=== PATIENT | female | born 1965 | race Caucasian/White ===

== ENCOUNTER 2024-12-13 02:04 | Emergency (ER) | payer OTHER ==
[~2024-12-13] VITALS: Ht 167.6 cm; Wt 100.0 kg
[2024-12-13 02:06] VITALS: O2SAT 96
[2024-12-13 03:15] LABS: CHLORIDE 102 mEq/L (98-107); POTASSIUM 3.9 mEq/L (3.5-5.1); SODIUM 138 mEq/L (136-145)
[2024-12-13 03:16] LABS: CALCIUM 9.6 mg/dL (8.7-10.4); CARBON DIOXIDE 26 mEq/L (21-32)
[2024-12-13 03:21] LABS: CREATININE 0.7 mg/dL (0.6-1.0); GLUCOSE 126 mg/dL (70-105); UREA NITROGEN BLOOD 14 mg/dL (9-23)
[2024-12-13] MEDS: ONDANSETRON HCL 4MG/2ML INJ IV STA (04:30)
[2024-12-13] MEDS: MORPHINE SULFATE 4 MG/ML INJ (FOR IV/IM USE) IV STA (04:30)
[2024-12-13] MEDS: SODIUM CHLORIDE 0.9% 1,000 ML IV ONE (04:31)
[2024-12-13] MEDS ORDERED: IBUP-2029 MT (05:17)
[2024-12-13 06:11] VITALS: BP 106/60; PULSE 71; RESP 15; TEMP 37.2; O2SAT 93
[2024-12-13] MEDS ORDERED: IOHEXOL-300 100 ML BOTTLE ONE (07:05)
== END 2024-12-13 06:37 | disposition home or self-care (01) ==
LOC: ER 02:04
DX: S20.212A Contusion of left front wall of thorax, initial encounter (principal); S30.1XXA Contusion of abdominal wall, initial encounter; S70.02XA Contusion of left hip, initial encounter; E11.9 Type 2 diabetes mellitus without complications; V49.9XXA Car occupant (driver) (passenger) injured in unspecified traffic accident, initial encounter; Y93.89 Activity, other specified; Y92.89 Other specified places as the place of occurrence of the external cause; Y99.8 Other external cause status
CPT/HCPCS: 99285; 70450; 96374; 96361; 96375; 80048; 36415; 73560; 71260; 72125; 74177; Q9967; J2405; J2270; J7030